=== PATIENT | female | born 1955 | race Caucasian/White ===

== ENCOUNTER 2021-03-14 15:11 | Outpatient (CLI) | payer MEDICARE, OTHER | END 2021-03-14 15:12 | disposition home or self-care (01) | LOC: BICRAD 15:11 | PROVIDERS: ATTEND Surgery | DX: Z48.815 Encounter for surgical aftercare following surgery on the digestive system (principal); Z98.84 Bariatric surgery status; K59.00 Constipation, unspecified | CPT/HCPCS: 74018 ==

== ENCOUNTER 2021-03-29 10:57 | Outpatient (CLI) | payer MEDICARE, OTHER ==
[2021-03-29 12:43] LABS: #Monocytes 0.7 10x3/uL (0.0-1.1); %Basophils 0.4 % (0.0-2.0); %Lymphocytes 30.6 % (18.0-47.0); %Monocytes 9.7 % (0.0-10.0); Hemoglobin 12.9 g/dL (12.0-15.5); Mean Corpuscular HGB CONC 33.1 g/dL (32.0-36.0); Mean Corpuscular Hemoglobin 32.8 pg (27.0-33.0); Mean Corpuscular Volume 99.2 fl (81.6-98.3); Mean Platelet Volume 12.6 fl (7.4-10.4); Platelet Count 157 10x3/uL (150-450); RBC Distribution Width 13.2 % (11.5-14.5); Red Blood Cell (RBC) Count 3.93 10x6/uL (3.90-5.03); White Blood Cell (WBC) Count 6.8 10x3/uL (3.5-10.5)
[2021-03-29 14:06] LABS: ALT (SGPT) 21 U/L (8-55); AST (SGOT) 24 U/L (5-34); Albumin 3.7 g/dL (3.4-4.8); Alkaline Phosphatase 122 U/L (40-110); Anion Gap 14 mmol/L (10-20); BUN (Urea Nitrogen) 37 mg/dL (9.8-20.1); Bilirubin, Total 0.7 mg/dL (0.2-1.2); Calc. Creatinine Clearance 0 mL/min (70-130); Calcium 9.9 mg/dL (7.8-10.44); Carbon Dioxide 27 mmol/L (23-31); Chloride 106 mmol/L (98-107); Globulin 3.3 g/dL (2.4-3.5); Glucose 102 mg/dL (80-115); Potassium 4.8 mmol/L (3.5-5.1); Sodium 142 mmol/L (136-145)
== END 2021-03-29 10:58 | disposition home or self-care (01) ==
LOC: LABBT 10:57
PROVIDERS: ATTEND Surgery
DX: Z01.818 Encounter for other preprocedural examination (principal); T85.638A Leakage of other specified internal prosthetic devices, implants and grafts, initial encounter
CPT/HCPCS: 80053; 85025; 93005; 93010

== ENCOUNTER 2021-04-01 06:07 | Day surgery (SDC) | payer MEDICARE, OTHER ==
[2021-03-30 16:01] VITALS: BMI 28.0
[2021-04-01] MEDS ORDERED: Bupivacaine 0.25% HCL 30 ML VIAL ONE (06:52)
[2021-04-01] MEDS ORDERED: Lidocaine 1% w/Epinephrine 1:100K 20 ML VIAL ONE (06:52)
[2021-04-01] MEDS ORDERED: Fentanyl 100 MCG/2 ML VIAL ONE ×2 (07:09→09:20)
[2021-04-01] MEDS ORDERED: SUGAMMADEX SODIUM 200 MG/2 ML VIAL ONE (07:10)
[2021-04-01] MEDS ORDERED: Lidocaine 1% PF 5 ML VIAL ONE (07:55)
[2021-04-01] MEDS ORDERED: Rocuronium Bromide 10 MG/ML (10ML VIAL) ONE (07:55)
[2021-04-01] MEDS ORDERED: PHENYLEPHRINE-NS 100 MCG/ML 10 ML SYRINGE ONE (07:55)
[2021-04-01] MEDS ORDERED: PROPOFOL 200 MG/20 ML VIAL ONE (07:55)
[2021-04-01] MEDS ORDERED: Ondansetron PF 4 MG/2 ML Vial ONE (07:55)
[2021-04-01] MEDS ORDERED: Ketorolac Tromethamine 30 MG/ML VIAL ONE (07:55)
[2021-04-01] MEDS ORDERED: Metoclopramide HCl 10 MG/2 ML VIAL ONE (07:55)
== END 2021-04-01 10:56 | disposition home or self-care (01) ==
LOC: SDC 06:07
PROVIDERS: ATTEND Surgery
PROC: 0DV60CZ Restriction of Stomach with Extraluminal Device, Open Approach (ICD-10-PCS; principal; 2021-04-01)
PROC: 0DW Gastrointestinal System, Revision (ICD-10-PCS; 2021-04-01)
DX: K95.09 Other complications of gastric band procedure (principal); T85.528A Displacement of other gastrointestinal prosthetic devices, implants and grafts, initial encounter; E78.5 Hyperlipidemia, unspecified; E03.9 Hypothyroidism, unspecified; G89.4 Chronic pain syndrome; F17.210 Nicotine dependence, cigarettes, uncomplicated; G62.9 Polyneuropathy, unspecified; M19.90 Unspecified osteoarthritis, unspecified site; E78.00 Pure hypercholesterolemia, unspecified; E11.9 Type 2 diabetes mellitus without complications; M10.9 Gout, unspecified; Z79.2 Long term (current) use of antibiotics; Z79.899 Other long term (current) drug therapy; Z88.5 Allergy status to narcotic agent; Z91.040 Latex allergy status; Y73.1 Therapeutic (nonsurgical) and rehabilitative gastroenterology and urology devices associated with adverse incidents
CPT/HCPCS: J0690; J1885; J2405; J2704; J2765; J3010; S0020